=== PATIENT | female | born 1980 | race Asian ===

== ENCOUNTER 2020-07-25 20:17 | Emergency (ER) | payer OTHER ==
[~2020-07-25] VITALS: Ht 160 cm; Wt 54.4 kg
[2020-07-25 20:30] VITALS: BP_SYST 113; BP_SYST 121; BP_DIAS 64; BP_DIAS 76
--- NOTE | 2020-07-25 20:30 | NUR ---
TO TENT #1 AMBULATORY
--- NOTE | 2020-07-25 20:50 | NUR ---
SEEN AND EXAMINED BY CHAD WITH ORDERS, CARRIED OUT
[2020-07-25] MEDS ORDERED: ACETAMIN/CODEINE 120/12MG-5ML 5 ML UDC PO ONE (20:55)
[2020-07-25] MEDS ORDERED: KETOROLAC 30 MG/ML VIAL IM ONE (20:55)
--- NOTE | 2020-07-25 21:00 | NUR ---
MEDICATED PER ERMDS ORDER, TOLERATED WELL.
--- NOTE | 2020-07-25 21:35 | NUR ---
RESULT BACK AND NOTED BY ERMD AND FOR D/C
[2020-07-25 21:52] VITALS: BP 121/64
--- NOTE | 2020-07-25 21:52 | NUR ---
Patient discharged with v/s stable. Written and verbal after care instructions given and explained. Patient alert, oriented and verbalized understanding of instructions. Ambulatory with steady gait. All questions addressed prior to discharge. ID band removed. Patient advised to follow up with PMD. Rx of NAPROSYN, GUAIATUSSIN given. Patient educated on indication of medication including possible reaction and side effects. Opportunity to ask questions provided and answered.
== END 2020-07-25 21:52 | disposition home or self-care (01) ==
LOC: MED 20:17
DX: U07.1 COVID-19 (principal); J20.9 Acute bronchitis, unspecified
CPT/HCPCS: 71045; 96372; 99283; J1885